=== PATIENT | female | born 1990 | race Caucasian/White ===

== ENCOUNTER → 2016-05-19 | Outpatient (CLI) | payer OTHER ==
[2016-05-19 15:01] LABS: HEMOGLOBIN 12.3 gm/dl (12.3-15.3); RED BLOOD COUNT 3.91 M/UL (4.00-5.10); WHITE BLOOD COUNT 5.7 K/UL (4.5-11.0)
== END ==
LOC: LAB 14:08
PROVIDERS: Ophthalmology
DX: D31 Benign neoplasm of eye and adnexa (principal)
CPT/HCPCS: 36415; 82164; 85025; 85549; 86039; 86140; 86611; 86780

== ENCOUNTER → 2016-05-26 | Outpatient (CLI) | payer OTHER | LOC: KOH-I 13:53 | DX: D31 Benign neoplasm of eye and adnexa (principal) | CPT/HCPCS: 70480 ==

== ENCOUNTER → 2016-06-21 | Outpatient (CLI) | payer OTHER | LOC: KOH-I 08:00 | DX: R55 Syncope and collapse (principal) | CPT/HCPCS: 70450 ==

== ENCOUNTER → 2016-06-21 | Outpatient (CLI) | payer OTHER | LOC: HEART 5 09:00 | DX: R55 Syncope and collapse (principal) ==

== ENCOUNTER → 2020-04-28 | Outpatient (CLI) | payer OTHER | LOC: LAB 12:59 | DX: Z01.812 Encounter for preprocedural laboratory examination (principal); D49.9 Neoplasm of unspecified behavior of unspecified site | CPT/HCPCS: 36415; 82565; 84520 ==

== ENCOUNTER → 2020-04-29 | Outpatient (CLI) | payer OTHER | LOC: KOH-I 04-21 11:30 → CT 10:00 | DX: D31.62 Benign neoplasm of unspecified site of left orbit (principal); J34.89 Other specified disorders of nose and nasal sinuses | CPT/HCPCS: 70482; Q9963 ==

== ENCOUNTER 2020-09-25 04:54 | Outpatient (CLI) | payer OTHER | END 2020-09-25 07:42 | disposition home or self-care (01) | LOC: GENOP 04:54 | DX: O26.852 Spotting complicating pregnancy, second trimester (principal); R10.9 Unspecified abdominal pain; M54.9 Dorsalgia, unspecified; Z3A.22 22 weeks gestation of pregnancy | CPT/HCPCS: 81001; G0463 ==

== ENCOUNTER 2020-11-14 11:23 | Outpatient (CLI) | payer OTHER | END 2020-11-14 13:50 | disposition home or self-care (01) | LOC: GENOP 11:23 | DX: O47.03 False labor before 37 completed weeks of gestation, third trimester (principal); Z3A.30 30 weeks gestation of pregnancy; O24.419 Gestational diabetes mellitus in pregnancy, unspecified control; O99.353 Diseases of the nervous system complicating pregnancy, third trimester; O99.513 Diseases of the respiratory system complicating pregnancy, third trimester; O99.013 Anemia complicating pregnancy, third trimester; G43.909 Migraine, unspecified, not intractable, without status migrainosus; J45.909 Unspecified asthma, uncomplicated | CPT/HCPCS: 81001; 82962; 83518; G0463 ==

== ENCOUNTER 2020-12-21 03:51 | Outpatient (CLI) | payer OTHER | END 2020-12-21 07:11 | disposition home or self-care (01) | LOC: GENOP 03:51 | DX: O47.03 False labor before 37 completed weeks of gestation, third trimester (principal); O99.891 Other specified diseases and conditions complicating pregnancy; Z3A.35 35 weeks gestation of pregnancy; O24.419 Gestational diabetes mellitus in pregnancy, unspecified control; N89.8 Other specified noninflammatory disorders of vagina; O99.353 Diseases of the nervous system complicating pregnancy, third trimester; G43.909 Migraine, unspecified, not intractable, without status migrainosus | CPT/HCPCS: 81001; 83518; 96360 ==

== ENCOUNTER 2021-01-06 05:39 | Inpatient (IN) | payer OTHER ==
[~2021-01-06] VITALS: Ht 160 cm; Wt 73.5 kg
[2021-01-06] MEDS ORDERED: HUMULIN N100 UNIT/1 SC ×2 (06:29→06:30)
[2021-01-06] MEDS ORDERED: HUMULIN R100 UNIT/1 SC ×2 (06:31→06:32)
[2021-01-06] MEDS ORDERED: LORATADINE10 MG PO (06:32)
[2021-01-06] MEDS ORDERED: TRANDATE 100 M100 MG PO (06:34)
[2021-01-06] MEDS ORDERED: PRENATAL TABLE1 EAC1 PO (06:35)
[2021-01-06] MEDS ORDERED: LEXAPRO5 MG PO (06:37)
[2021-01-06 07:03] LABS: HEMOGLOBIN 9.4 gm/dl (12.3-15.3); RED BLOOD COUNT 3.25 M/UL (4.00-5.10); WHITE BLOOD COUNT 9.2 K/UL (4.5-11.0)
[2021-01-06 07:37] LABS: BUN/CREATININE RATIO 24 (0-10)
[2021-01-06] MEDS ORDERED: IBUPROFEN600 MG PO (09:52)
[2021-01-06] MEDS ORDERED: COLACE 100MG C100 MG PO (09:52)
[2021-01-07] MEDS ORDERED: IRON325 M1 PO (09:39)
[2021-01-09] MEDS ORDERED: ZOFRAN4 MG PO (14:33)
== END 2021-01-09 15:44 | disposition home or self-care (01) | DRG 787 ==
LOC: OB 05:39
PROVIDERS: ADMIT Obstetrics & Gynecology
PROC: 10D00Z1 Extraction of Products of Conception, Low, Open Approach (ICD-10-PCS; principal; 2021-01-06 07:30)
PROC: 3E0234Z Introduction of Serum, Toxoid and Vaccine into Muscle, Percutaneous Approach (ICD-10-PCS; 2021-01-07)
DX: O32.1XX1 Maternal care for breech presentation, fetus 1 (principal); O99.354 Diseases of the nervous system complicating childbirth; J45.909 Unspecified asthma, uncomplicated; O99.52 Diseases of the respiratory system complicating childbirth; O36.5930 Maternal care for other known or suspected poor fetal growth, third trimester, not applicable or unspecified; O99.02 Anemia complicating childbirth; O13.4 Gestational [pregnancy-induced] hypertension without significant proteinuria, complicating childbirth; O34.13 Maternal care for benign tumor of corpus uteri, third trimester; O99.344 Other mental disorders complicating childbirth; F41.9 Anxiety disorder, unspecified; D25.9 Leiomyoma of uterus, unspecified; G43.909 Migraine, unspecified, not intractable, without status migrainosus; O24.424 Gestational diabetes mellitus in childbirth, insulin controlled; Z3A.37 37 weeks gestation of pregnancy; Z37.0 Single live birth; Z88.0 Allergy status to penicillin; Z88.8 Allergy status to other drugs, medicaments and biological substances; Z79.4 Long term (current) use of insulin; Z82.49 Family history of ischemic heart disease and other diseases of the circulatory system; Z83.3 Family history of diabetes mellitus; Z86.59 Personal history of other mental and behavioral disorders; Z86.69 Personal history of other diseases of the nervous system and sense organs; Z23 Encounter for immunization
CPT/HCPCS: 80053; 81001; 82962; 85014; 85018; 85025; 90471; 90686; 90715; 94640; 94664; 94760; C9113; G0008; J1200; J1580; J1885; J2250; J2274; J2370; J2405; J2590; J3010; J7030; J7120

== ENCOUNTER → 2021-06-28 | Outpatient (CLI) | payer OTHER ==
[~2021-06-28] MED LIST: CLARITIN10 MG PO; COLACE 100MG C100 MG PO; HUMULIN N100 UNIT/1 SC; HUMULIN R100 UNIT/1 SC; IBUPROFEN600 MG PO; IRON325 M1 PO; LEXAPRO5 MG PO; LOPRESSOR 25 MG25 MG PO; LORATADINE10 MG PO; MENSTRUAL RELI1 EACH PO; PRENATAL TABLE1 EAC1 PO; PROAIR HFA8.5 GM INH; TRANDATE 100 M100 MG PO; VITAMIN D21250 MCG PO; ZOFRAN4 MG PO
[2021-06-28 14:03] LABS: HEMOGLOBIN 11.6 gm/dl (12.3-15.3); RED BLOOD COUNT 4.24 M/UL (4.00-5.10); WHITE BLOOD COUNT 6.1 K/UL (4.5-11.0)
[2021-06-28 14:33] LABS: BUN/CREATININE RATIO 21 (0-10)
== END ==
LOC: OPSV2 06-25 10:00
PROVIDERS: Obstetrics & Gynecology
DX: Z01.818 Encounter for other preprocedural examination (principal); D21.9 Benign neoplasm of connective and other soft tissue, unspecified
CPT/HCPCS: 36415; 80053; 81001; 85025; 93005

== ENCOUNTER 2021-07-02 05:10 | Day surgery (SDC) | payer OTHER ==
[~2021-07-02] VITALS: Ht 160 cm; Wt 55.3 kg
[2021-07-02] MEDS ORDERED: TRANDATE 100 M100 MG PO (06:25)
[2021-07-02] MEDS ORDERED: TYLENOL 8 HOUR650 MG PO (10:01)
[2021-07-02] MEDS ORDERED: FERROUS SULFAT325 MG PO (10:01)
[2021-07-02] MEDS ORDERED: COLACE100 MG PO (10:01)
[2021-07-02] MEDS ORDERED: PERCOCET 5-3251 EACH PO (10:02)
--- NOTE | 2021-07-03 16:14 | NUR ---
SPOKE WITH DR. ACUNA REGARDING THE PT'S MEDICATIONS THAT WERE NOT RECONCILED BEFORE DISCHARGE HOME. REVIEWED THESE MEDICATIONS WITH THE PHYSICIAN OVER THE PHONE TO FINALIZE THE PT'S DISCHARGE ORDERS. I EXPLAINED TO THE PT, PER THE PHYSICIAN, TO CONTINUE HER HOME BLOOD PRESSURE MEDICATIONS DIRECTED BY THE PCP AND FOLLOW-UP WITH ANY NEW NEEDS OR IN TWO WEEKS. PT WAS DISCHARGED HOME.
== END 2021-07-03 14:16 | disposition home or self-care (01) ==
LOC: OR 05:10 → M/S 11:31 → OR 07-03 14:16
DX: D25.2 Subserosal leiomyoma of uterus (principal); N83.12 Corpus luteum cyst of left ovary; E11.9 Type 2 diabetes mellitus without complications; Z88.0 Allergy status to penicillin; Z88.4 Allergy status to anesthetic agent; Z79.899 Other long term (current) drug therapy; Z20.822 Contact with and (suspected) exposure to COVID-19
CPT/HCPCS: 84702; J1100; J1170; J1580; J1885; J2001; J2250; J2405; J2550; J2704; J2795; J3010; J7030; J7120; Q0177